=== PATIENT | male | born 1955 | race Caucasian/White ===

== ENCOUNTER 2022-09-04 11:16 | Emergency (ER) | payer MEDICARE, SELFPAY ==
[2022-09-04 11:31] VITALS: PULSE 94; RESP 16; TEMP 36.3; O2SAT 96; BMI 28.0
--- NOTE | 2022-09-04 11:44 | CRLHL7_ITS ---
For Patients: As a result of the Century Cures Act, medical imaging exams and procedure reports are released immediately into your electronic medical record. You may view this report before your referring provider. If you have questions, please contact your health care provider. INDICATION: VISUAL CHANGES TECHNIQUE: Head CT without contrast. COMPARISON: None. FINDINGS: CSF spaces: Within normal limits for age. Brain parenchyma and extra-axial spaces: There are nonspecific low attenuation white matter changes consistent with chronic microvascular disease. No sign of intracranial hemorrhage, or midline shift. No extra-axial fluid collection. Skull base and calvarium: Small mucosal retention cyst within the right maxillary sinus. The visualized orbits are grossly unremarkable. No skull fractures. Vascular calcifications. IMPRESSION: No evidence of acute intracranial abnormality on this unenhanced CT. Mild periventricular and subcortical white matter lucencies are nonspecific but likely related to chronic microischemic changes. Please note that all CT scans at this facility use dose modulation, iterative reconstruction, and/or weight-based dosing when appropriate to reduce radiation dose to as low as reasonably achievable. Dictated by Ramirez Rivera MD @ 09/04/2022 12:14:48 PM (Electronically Signed)
--- NOTE | 2022-09-04 11:45 | ED_ITS ---
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 Reports that he has had some funny vision of his right eye some renato orbital discomfort. No trauma no injury, no foreign body. He has not had similar symptoms. The patient is diabetic. He has had no fevers, chills, skin rashes, no history of shingles. He presents to ED for evaluation. His gross visual acuity is normal, he does were glasses. He is mildly photophobic Related Data Home Medications Medication Instructions Recorded Confirmed aspirin 81 mg tablet,delayed 81 mg PO DAILY 09/04/22 09/04/22 release metformin 850 mg tablet 850 mg PO BID 09/04/22 09/04/22 Allergies Allergy/AdvReac Type Severity Reaction Status Date / Time No Known Drug Allergies Allergy Verified 09/04/22 11:36 Review of Systems Status of ROS: Reports: 6 or more systems reviewed and unremarkable except as noted in History and below PFSH PFS Social History Smoking Status: Never smoker How often do you have a drink containing alcohol: never AUDIT-C Alcohol total score: 0 Non-prescribed substance use: denies use Exam Narrative: Exam Narrative: Objective: Patient's gross visual acuity is normal Vital signs unremarkable No skin rashes around the eye on the right, is pupil is reactive to light. I can not see any corneal reflex difference. Extraocular moves are intact. There is no redness of the eye Const: Vital Signs, click to edit/add: Vital Signs - 24 hr 09/04/22 11:31 Temperature 97.3 F L Pulse Rate [Pulse Oximeter] 94 Respiratory Rate 16 Pulse Oximetry 96 Oxygen Delivery Me thod Room Air Course Vital Signs Vital signs: Initial Vital Signs Temperature 97.3 F L 09/04/22 11:31 Temperature Source Temporal Artery Scan 09/04/22 11:31 Pulse Rate 94 09/04/22 11:31 Respiratory Rate 16 09/04/22 11:31 Blood Pressure Position Sitting 09/04/22 11:31 Pulse Oximetry 96 09/04/22 11:31 Oxygen Delivery Method 09/04/22 11:31 Vital Signs Temperature 97.3 F L 09/04/22 11:31 Pulse Rate 94 09/04/22 11:31 Respiratory Rate 16 09/04/22 11:31 Pulse Oximetry 96 09/04/22 11:31 Oxygen Delivery Method 09/04/22 11:31 Temperature 97.3 F L 09/04/22 11:31 Pulse Rate 94 09/04/22 11:31 Respiratory Rate 16 09/04/22 11:31 Pulse Oximetry 96 09/04/22 11:31 Oxygen Delivery Method 09/04/22 11:31 Medical Decision Making MDM Narrative Medical decision making narrative: Patient is a 67-year-old diabetic who has right eye changes some mild discomfor t, and some mild waviness in his vision field. He does have gross visual acuity it appears normal. He has no redness to the eye. I think at this point he needs a CT scan of his head and then eye exam, will contact the eye physician on-call for assessment. The patient's gross visual acuity is normal, will check a formal eye test, without redness Dr. Daly and felt that this is unlikely be glaucoma would see the patient tomorrow. We will give them contact numbers so that they can connect and get an appointment tomorrow to be seen to check fundus in visual acuity. The patient will get a CT as mention at this is reassuring I think we can him follow up tomorrow as mention. Thanks, the patient's visual acuity is 20 30 bilateral so again argues against an acute glaucoma, I think we can have the patient seen tomorrow by Dr. Daly in if head CT is negative today. Discharge Plan Discharge Clinical Impression: Acute eye pain Patient Disposition: Home w/ Parent or Adult Condition: Stable Additional Instructions: Go to the eye doctor as discussed, treatment as per their recommendations.. Activity Level: Light activity Discharge Diet: Regular Prescriptions: No Action metformin 850 mg tablet 850 mg PO BID aspirin 81 mg tablet,delayed release (DR/EC) 81 mg PO DAILY Stand Alone Forms: [employer] Info Instructions
== END 2022-09-04 13:30 | disposition home or self-care (01) ==
LOC: ED 12:44
PROVIDERS: Emergency Provider Family Medicine; PCP Student in an Organized Health Care Education/Training Program
DX: H57.11 Ocular pain, right eye (principal)
CPT/HCPCS: 70450; 99283